=== PATIENT | female | born 1940 | race Caucasian/White ===

== ENCOUNTER 2021-11-17 14:05 | Emergency (ER) | payer MEDICARE ==
[2021-11-17] VITALS (9 sets, daily range): BP systolic 141–165; BP diastolic 72–95
[~2021-11-17] VITALS: Ht 182.9 cm; Wt 70.0 kg
[~2021-11-17 14:05] MED LIST: CORICIDI1 PO; MOTRIN400 MG PO; MOVE FREE JOINT1 TAB PO; POTASSIUM99 MG PO; TART CHERRY PO
[2021-11-17] MEDS ORDERED: DOXY-CAPS100 MG PO ×2 (17:38→18:12)
== END 2021-11-17 18:35 | disposition home or self-care (01) | DRG 605 ==
LOC: ED 14:05
PROC: 0HQ1XZZ Repair Face Skin, External Approach (ICD-10-PCS; principal; 2021-11-17)
DX: S01.81XA Laceration without foreign body of other part of head, initial encounter (principal); S41.111A Laceration without foreign body of right upper arm, initial encounter; S81.811A Laceration without foreign body, right lower leg, initial encounter; W01.0XXA Fall on same level from slipping, tripping and stumbling without subsequent striking against object, initial encounter; Y92.510 Bank as the place of occurrence of the external cause

== ENCOUNTER 2021-11-25 12:56 | Emergency (ER) | payer MEDICARE ==
[~2021-11-25] VITALS: Ht 182.9 cm; Wt 72.0 kg
[~2021-11-25 12:56] MED LIST changes: +DOXY-CAPS100 MG PO
[2021-11-25 13:09] VITALS: BP 137/66
[2021-11-25 13:15] VITALS: BP 140/72
[2021-11-25 13:30] VITALS: BP 144/72
[2021-11-25 13:45] VITALS: BP 124/65
[2021-11-25 14:01] VITALS: BP 113/96
[2021-11-25 14:17] VITALS: BP 113/96
== END 2021-11-25 14:18 | disposition home or self-care (01) ==
LOC: ED 12:56
DX: S01.01XD Laceration without foreign body of scalp, subsequent encounter (principal); X58.XXXD Exposure to other specified factors, subsequent encounter

== ENCOUNTER 2022-04-06 11:29 | Emergency (ER) | payer MEDICARE ==
[~2022-04-06] VITALS: Ht 182.9 cm; Wt 75.0 kg
[2022-04-06 11:39] VITALS: BP 168/80
[2022-04-06 12:38] VITALS: BP 168/80
== END 2022-04-06 12:40 | disposition home or self-care (01) ==
LOC: ED 11:29
DX: I83.891 Varicose veins of right lower extremity with other complications (principal)

== ENCOUNTER 2022-07-06 11:10 | Inpatient (IN) | payer MEDICARE ==
[2022-07-06] VITALS (65 sets, daily range): BP systolic 56–189; BP diastolic 25–154
[~2022-07-06] VITALS: Ht 175.3 cm; Wt 65.8 kg
[2022-07-06 11:36] LABS: BASO% 0.4 % (0-3); EOS% 0.1 % (0-8); HEMATOCRIT 34.5 % (37.0-47.0); HEMOGLOBIN 10.8 g/dl (12.0-16.0); IMMATURE GRANULOCYTES 0.5 % (0.0-5.0); LYMPH% 11.6 % (15-41); MEAN CORPUSCULAR HGB 28.8 pG CALC (26.0-32.0); MEAN CORPUSCULAR HGB CONC 31.3 g/dL CAL (32.0-36.0); MONO% 8.6 % (2-13); NEUT# 13.11 thou/uL (2.00-7.15); NEUT% 78.8 % (42-76); RED BLOOD COUNT 3.75 mill/uL (4.20-5.60)
[2022-07-06 11:47] LABS: ALKALINE PHOSPHATASE 74 u/l (38-126); ANION GAP 18 (6-22 (CALC)); BILIRUBIN, TOTAL 1.1 mg/dL (0.02-1.3); BUN 13 mg/dL (8-23); BUN/CREATININE RATIO 11 (12-20 (CALC)); CARBON DIOXIDE 24 mmol/l (22-30); CHLORIDE 104 mmol/l (95-108); CREATININE 1.2 mg/dL (0.5-1.0); GFR FOR AFR.AMER. 52 ML/MIN (>=60 (CALC)); GFR OTHER RACES 43 ML/MIN (>=60 (CALC)); POTASSIUM 3.5 mmol/l (3.5-5.1); SGOT/AST 32 u/l (9-36); SODIUM 142 mmol/l (137-146); TOTAL PROTEIN 6.6 g/dL (6.3-8.2)
[2022-07-06 13:04] LABS: URINE BILIRUBIN - DIPSTICK NEGATIVE (NEGATIVE); URINE BLOOD DIPSTICK TRACE-INTACT (NEGATIVE); URINE COLOR YELLOW; URINE GLUCOSE - DIPSTICK NEGATIVE (NEGATIVE); URINE KETONE NEGATIVE (NEGATIVE); URINE LEUK ESTERASE NEGATIVE (NEGATIVE); URINE NITRITE - DIPSTICK NEGATIVE (Negative); URINE PH 6.5 (4.5-8.0); URINE PROTEIN - DIPSTICK 30 mg/dL (NEG-TRACE); URINE UROBILINOGEN - DIPSTICK 0.2 E.U./dL (0.2)
[2022-07-06 13:05] LABS: URINE EPITHELIAL CELLS FEW EPI/hpf (0-FEW); URINE RBC 0-2 RBC/hpf (0-5)
[2022-07-07] VITALS (60 sets, daily range): BP systolic 98–133; BP diastolic 42–84
[2022-07-07 05:22] LABS: MEAN CELL VOLUME 91.3 fL CALC (80.0-100.0); MEAN CORPUSCULAR HGB 28.9 pG CALC (26.0-32.0); MEAN CORPUSCULAR HGB CONC 31.7 g/dL CAL (32.0-36.0); RED BLOOD COUNT 2.63 mill/uL (4.20-5.60); RED CELL DISTRI WIDTH 13.1 % (11.5-15.5)
[2022-07-07 05:51] LABS: ALBUMIN 2.9 g/dL (3.2-5.0); ALKALINE PHOSPHATASE 49 u/l (38-126); ANION GAP 6 (6-22 (CALC)); BILIRUBIN, TOTAL 0.7 mg/dL (0.02-1.3); BUN 9 mg/dL (8-23); BUN/CREATININE RATIO 13 (12-20 (CALC)); CARBON DIOXIDE 27 mmol/l (22-30); CHLORIDE 108 mmol/l (95-108); CREATININE 0.7 mg/dL (0.5-1.0); GFR FOR AFR.AMER. > 60 ML/MIN (>=60 (CALC)); GFR OTHER RACES > 60 ML/MIN (>=60 (CALC)); MAGNESIUM 1.9 mg/dL (1.6-2.3); POTASSIUM 3.4 mmol/l (3.5-5.1); SGOT/AST 27 u/l (9-36); SODIUM 137 mmol/l (137-146)
[2022-07-07 05:52] LABS: HEMOGLOBIN 7.6 g/dl (12.0-16.0)
[2022-07-08] VITALS (12 sets, daily range): BP systolic 111–144; BP diastolic 44–72
[2022-07-08 05:35] LABS: HEMATOCRIT 23.7 % (37.0-47.0); HEMOGLOBIN 7.5 g/dl (12.0-16.0); MEAN CELL VOLUME 90.8 fL CALC (80.0-100.0); MEAN CORPUSCULAR HGB 28.7 pG CALC (26.0-32.0); MEAN CORPUSCULAR HGB CONC 31.6 g/dL CAL (32.0-36.0); RED BLOOD COUNT 2.61 mill/uL (4.20-5.60); RED CELL DISTRI WIDTH 13.2 % (11.5-15.5)
[2022-07-08 05:59] LABS: ALBUMIN 3.1 g/dL (3.2-5.0); ALKALINE PHOSPHATASE 55 u/l (38-126); ANION GAP 5 (6-22 (CALC)); BILIRUBIN, TOTAL 0.6 mg/dL (0.02-1.3); BUN 4 mg/dL (8-23); BUN/CREATININE RATIO 7 (12-20 (CALC)); CARBON DIOXIDE 31 mmol/l (22-30); CHLORIDE 106 mmol/l (95-108); CREATININE 0.6 mg/dL (0.5-1.0); GFR FOR AFR.AMER. > 60 ML/MIN (>=60 (CALC)); GFR OTHER RACES > 60 ML/MIN (>=60 (CALC)); MAGNESIUM 1.8 mg/dL (1.6-2.3); POTASSIUM 3.1 mmol/l (3.5-5.1); SGOT/AST 28 u/l (9-36); SODIUM 139 mmol/l (137-146); TOTAL PROTEIN 5.4 g/dL (6.3-8.2)
[2022-07-09] VITALS (8 sets, daily range): BP systolic 112–145; BP diastolic 50–72
[2022-07-09 05:23] LABS: BASO% 0.8 % (0-3); EOS% 0.2 % (0-8); HEMATOCRIT 24.4 % (37.0-47.0); HEMOGLOBIN 7.8 g/dl (12.0-16.0); LYMPH% 23.5 % (15-41); MEAN CELL VOLUME 90.4 fL CALC (80.0-100.0); MEAN CORPUSCULAR HGB 28.9 pG CALC (26.0-32.0); MONO% 11.5 % (2-13); NEUT# 3.25 thou/uL (2.00-7.15); RED BLOOD COUNT 2.7 mill/uL (4.20-5.60)
[2022-07-09 05:44] LABS: ALBUMIN 3.2 g/dL (3.2-5.0); ALKALINE PHOSPHATASE 58 u/l (38-126); ANION GAP 6 (6-22 (CALC)); BILIRUBIN, TOTAL 0.8 mg/dL (0.02-1.3); BUN 8 mg/dL (8-23); BUN/CREATININE RATIO 14 (12-20 (CALC)); CARBON DIOXIDE 33 mmol/l (22-30); CHLORIDE 102 mmol/l (95-108); CREATININE 0.6 mg/dL (0.5-1.0); GFR FOR AFR.AMER. > 60 ML/MIN (>=60 (CALC)); GFR OTHER RACES > 60 ML/MIN (>=60 (CALC)); POTASSIUM 3.3 mmol/l (3.5-5.1); SGOT/AST 27 u/l (9-36); SODIUM 138 mmol/l (137-146); TOTAL PROTEIN 5.7 g/dL (6.3-8.2)
[2022-07-10 04:01] VITALS: BP 132/51
[2022-07-10 07:25] VITALS: BP 145/73
[2022-07-10 15:01] VITALS: BP 134/46
[2022-07-10] MEDS ORDERED: FERROUS SULF325 M3 PO (15:17)
[2022-07-10] MEDS ORDERED: PANTOPRAZOLE SO40 M1 PO (15:17)
[2022-07-10] MEDS ORDERED: KEFLEX500 MG PO (15:17)
[2022-07-10 21:00] VITALS: BP 117/50
[2022-07-11] VITALS: BP 109/56
[2022-07-11 04:38] VITALS: BP 144/60
[2022-07-11 06:34] LABS: EOS% 1.9 % (0-8); HEMATOCRIT 23.8 % (37.0-47.0); HEMOGLOBIN 7.6 g/dl (12.0-16.0); LYMPH% 29.9 % (15-41); MEAN CELL VOLUME 92.6 fL CALC (80.0-100.0); MEAN CORPUSCULAR HGB 29.6 pG CALC (26.0-32.0); MEAN CORPUSCULAR HGB CONC 31.9 g/dL CAL (32.0-36.0); MONO% 16.2 % (2-13); NEUT# 1.57 thou/uL (2.00-7.15); RED BLOOD COUNT 2.57 mill/uL (4.20-5.60); RED CELL DISTRI WIDTH 13.3 % (11.5-15.5)
[2022-07-11 06:38] LABS: ALBUMIN 3.3 g/dL (3.2-5.0); ALKALINE PHOSPHATASE 55 u/l (38-126); ANION GAP 9 (6-22 (CALC)); BILIRUBIN, TOTAL 0.3 mg/dL (0.02-1.3); BUN 14 mg/dL (8-23); BUN/CREATININE RATIO 18 (12-20 (CALC)); CARBON DIOXIDE 32 mmol/l (22-30); CHLORIDE 104 mmol/l (95-108); CREATININE 0.8 mg/dL (0.5-1.0); GFR FOR AFR.AMER. > 60 ML/MIN (>=60 (CALC)); GFR OTHER RACES > 60 ML/MIN (>=60 (CALC)); POTASSIUM 3.5 mmol/l (3.5-5.1); SGOT/AST 22 u/l (9-36); SODIUM 141 mmol/l (137-146); TOTAL PROTEIN 5.7 g/dL (6.3-8.2)
[2022-07-11 07:21] VITALS: BP 130/67
[2022-07-11 11:18] VITALS: BP 116/66
[2022-07-11] MEDS ORDERED: B-121000 MC6 PO (11:44)
== END 2022-07-11 16:15 | disposition home or self-care (01) | DRG 871 ==
LOC: ED 11:10 → ED-I 15:15 → ED 15:27 → ICU 15:28 → MS2 07-09 00:53
PROVIDERS: Family Medicine; Nurse Practitioner Family; ADMIT Internal Medicine; ATTEND Internal Medicine
PROC: 02HV33Z Insertion of Infusion Device into Superior Vena Cava, Percutaneous Approach (ICD-10-PCS; principal; 2022-07-06)
PROC: 0T9B70Z Drainage of Bladder with Drainage Device, Via Natural or Artificial Opening (ICD-10-PCS; 2022-07-06)
PROC: 3E043XZ Introduction of Vasopressor into Central Vein, Percutaneous Approach (ICD-10-PCS; 2022-07-06)
DX: A41.1 Sepsis due to other specified staphylococcus (principal); K57.31 Diverticulosis of large intestine without perforation or abscess with bleeding; R65.21 Severe sepsis with septic shock; E86.0 Dehydration; I83.891 Varicose veins of right lower extremity with other complications; I95.9 Hypotension, unspecified; D50.9 Iron deficiency anemia, unspecified; D51.9 Vitamin B12 deficiency anemia, unspecified; D69.6 Thrombocytopenia, unspecified; Z88.0 Allergy status to penicillin; Z53.20 Procedure and treatment not carried out because of patient's decision for unspecified reasons; Z20.822 Contact with and (suspected) exposure to COVID-19
CPT/HCPCS: J1650; J1756; J3420; Q9967

== ENCOUNTER 2022-08-08 06:55 | Day surgery (SDC) | payer MEDICARE ==
[~2022-08-08] VITALS: Ht 182.9 cm; Wt 72.6 kg
[~2022-08-08 06:55] MED LIST changes: +B-121000 MC6 PO; +FERROUS SULF325 M3 PO; +KEFLEX500 MG PO; +PANTOPRAZOLE SO40 M1 PO
[2022-08-08 10:37] VITALS: BP 147/66
== END 2022-08-08 10:25 | disposition home or self-care (01) ==
LOC: ORM 06:55 → ENDO 06:55 → ORM 08:45 → ENDO 10:25
PROVIDERS: ATTEND Surgery
PROC: 0DJD8ZZ Inspection of Lower Intestinal Tract, Via Natural or Artificial Opening Endoscopic (ICD-10-PCS; principal; 2022-08-08)
DX: K57.31 Diverticulosis of large intestine without perforation or abscess with bleeding (principal); K64.8 Other hemorrhoids; I83.891 Varicose veins of right lower extremity with other complications; I10 Essential (primary) hypertension

== ENCOUNTER 2022-09-24 16:24 | Emergency (ER) | payer MEDICARE ==
[~2022-09-24] VITALS: Ht 182.9 cm; Wt 56.6 kg
[~2022-09-24 16:24] MED LIST changes: +CIPROFLOXACN500 MG PO
[2022-09-24] MEDS ORDERED: ULTRAM50 MG PO (19:39)
[2022-09-24] MEDS ORDERED: BACTRIM DS1 TAB PO (19:39)
[2022-09-24 20:11] VITALS: BP 127/64
== END 2022-09-24 20:11 | disposition home or self-care (01) ==
LOC: ED 16:24
PROC: 0HQDXZZ Repair Right Lower Arm Skin, External Approach (ICD-10-PCS; principal; 2022-09-24)
DX: M25.561 Pain in right knee (principal); S51.011A Laceration without foreign body of right elbow, initial encounter; S51.811A Laceration without foreign body of right forearm, initial encounter; W01.0XXA Fall on same level from slipping, tripping and stumbling without subsequent striking against object, initial encounter; Y93.E3 Activity, vacuuming; Y92.510 Bank as the place of occurrence of the external cause; Y99.0 Civilian activity done for income or pay